=== PATIENT | male | born 1970 | race Asian ===

== ENCOUNTER 2021-02-06 10:31 | Outpatient (CLI) | payer BC, SELFPAY | END 2021-02-06 10:32 | disposition home or self-care (01) | LOC: ANHCOVIDVC 10:31 | PROVIDERS: PCP Family Medicine | DX: Z23 Encounter for immunization (principal) | CPT/HCPCS: 0001A; 91300 ==

== ENCOUNTER 2021-02-27 10:27 | Outpatient (CLI) | payer BC, SELFPAY | END 2021-02-27 10:28 | disposition home or self-care (01) | LOC: ANHCOVIDVC 10:27 | PROVIDERS: PCP Family Medicine | DX: Z23 Encounter for immunization (principal) | CPT/HCPCS: 0002A; 91300 ==

== ENCOUNTER → 2022-05-03 17:13 | Outpatient (CLI) | payer BC, SELFPAY ==
--- NOTE | ~2022-05-03 | XR_ITS ---
XR chest 2V DATE: 05/03/2022 17:59 INDICATION: Chest pain TECHNIQUE: PA and lateral views COMPARISON: None FINDINGS: Normal heart size. No hilar or mediastinal enlargement. No pulmonary infiltrate or consolid ation, pleural effusion or pulmonary vascular congestion or pneumothorax. Included skeletal structure s are unremarkable. IMPRESSION: No active cardiopulmonary disease Reviewed, dictated and finalized at location A.
== END ==
PROVIDERS: PCP Family Medicine; Visit Provider Nurse Practitioner Gerontology
DX: R07.9 Chest pain, unspecified (principal)
CPT/HCPCS: 71046